=== PATIENT | female | born 2000 | race Caucasian/White ===

== ENCOUNTER 2025-03-11 15:12 | Emergency (ER) | payer BC, SELFPAY ==
[2025-03-11] MEDS ORDERED: Ibuprofen 200 MG TAB ONE (16:04)
[2025-03-11 16:07] LABS: Pregnancy Test - Urine (BHCG) Negative (Negative); Pregu Control Background? CLEAR/WHITE (CLR/WHITE); Pregu Control Bar Appear? YES (CONTROL BAR)
== END 2025-03-11 17:50 | disposition home or self-care (01) ==
LOC: NAV ERS 15:12
DX: S39.012A Strain of muscle, fascia and tendon of lower back, initial encounter (principal); S16.1XXA Strain of muscle, fascia and tendon at neck level, initial encounter; S29.012A Strain of muscle and tendon of back wall of thorax, initial encounter; S00.93XA Contusion of unspecified part of head, initial encounter; S80.02XA Contusion of left knee, initial encounter; I10 Essential (primary) hypertension; F17.290 Nicotine dependence, other tobacco product, uncomplicated; V49.40XA Driver injured in collision with unspecified motor vehicles in traffic accident, initial encounter
CPT/HCPCS: 70450; 72125; 72128; 72131; 81025